=== PATIENT | male | born 1980 | race Caucasian/White ===

== ENCOUNTER 2018-06-29 18:20 | Inpatient (IN) | payer MEDICAID ==
[~2018-06-29] VITALS: Ht 170.2 cm; Wt 85.3 kg
[2018-06-29 18:48] VITALS: Ht 170.2 cm; Wt 85.3 kg
[2018-06-29 20:40] LABS: microscopic required? NO
[2018-06-29 20:51] LABS: UA SPECIFIC GRAVITY >=1.030 (1.005-1.035); urine erythrocyte NEGATIVE (NEGATIVE)
[2018-06-29 20:52] LABS: BASOPHIL % 0.7 % (0-2); PLATELET COUNT 234 x10^3mcL (130-400)
[2018-06-29 20:59] LABS: AMPHETAMINE QUAL UR NONE DETECTED (See below)
[2018-06-29 21:00] LABS: RED CELL DISTRIBUTION WIDTH 14.6 % (11.5-14.5)
[2018-06-29 21:41] LABS: CALCIUM 8.6 mg/dL (8.5-10.1); CARBON DIOXIDE 24.6 mmol/L (21-32); CHLORIDE SERUM 106 mmol/L (98-107); CREATININE SERUM 0.8 mg/dL (0.7-1.3); GFR1 > 60 mL/min; GLUCOSE SERUM 127 mg/dL (74-106); POTASSIUM SERUM 3.8 mmol/L (3.5-5.1); SODIUM SERUM 141 mmol/L (136-145)
[2018-06-29 21:51] LABS: ALBUMIN 3.8 g/dL (3.4-5.0); ALKALINE PHOSPHATASE 120 U/L (46-116); ALT/SGPT 20 U/L (16-63); AST/SGOT 20 U/L (15-37); BILIRUBIN TOTAL 0.3 mg/dL (0.20-1.00); FREE T4 0.92 ng/dL (0.76-1.46); TOTAL PROTEIN, SERUM 7.8 g/dL (6.4-8.2)
[2018-06-30 00:53] VITALS: BP 124/85
[2018-06-30 05:52] VITALS: BP 117/74
[2018-06-30 07:39] LABS: CALCIUM 8.4 mg/dL (8.5-10.1); CARBON DIOXIDE 27.5 mmol/L (21-32); CHLORIDE SERUM 108 mmol/L (98-107); CREATININE SERUM 0.8 mg/dL (0.7-1.3); GFR1 > 60 mL/min; GLUCOSE SERUM 104 mg/dL (74-106); POTASSIUM SERUM 4.2 mmol/L (3.5-5.1); SODIUM SERUM 143 mmol/L (136-145)
[2018-06-30 07:43] LABS: BASOPHIL % 0.6 % (0-2); PLATELET COUNT 206 x10^3mcL (130-400); RED CELL DISTRIBUTION WIDTH 14.5 % (11.5-14.5)
[2018-06-30 08:36] VITALS: BP 119/72
[2018-06-30 17:52] VITALS: BP 130/79
[2018-06-30 20:55] VITALS: BP 135/72
[2018-07-01 06:06] VITALS: BP 130/68
[2018-07-01 07:35] LABS: CALCIUM 8.4 mg/dL (8.5-10.1); CARBON DIOXIDE 27.8 mmol/L (21-32); CHLORIDE SERUM 106 mmol/L (98-107); CREATININE SERUM 0.7 mg/dL (0.7-1.3); GFR1 > 60 mL/min; GLUCOSE SERUM 98 mg/dL (74-106); POTASSIUM SERUM 3.6 mmol/L (3.5-5.1); SODIUM SERUM 141 mmol/L (136-145)
[2018-07-01 09:01] LABS: BASOPHIL % 0.7 % (0-2); PLATELET COUNT 226 x10^3mcL (130-400); RED CELL DISTRIBUTION WIDTH 14.2 % (11.5-14.5)
[2018-07-01 14:02] VITALS: BP 130/68
[2018-07-01 15:00] VITALS: BP 128/72
== END 2018-07-01 18:11 | disposition home or self-care (01) | DRG 48 ==
LOC: ED 18:20 → DU 22:34
PROVIDERS: Emergency Medicine; Family Medicine
DX: G90.8 Other disorders of autonomic nervous system (principal); F10.10 Alcohol abuse, uncomplicated; R00.1 Bradycardia, unspecified; F14.21 Cocaine dependence, in remission; F15.21 Other stimulant dependence, in remission; Z68.27 Body mass index [BMI] 27.0-27.9, adult; Z87.891 Personal history of nicotine dependence
CPT/HCPCS: 36600; 83880; 84439; G0480; J0461; J7030; Q0092

== ENCOUNTER 2019-09-13 20:44 | Emergency (ER) | payer MEDICAID ==
[~2019-09-13] VITALS: Ht 170.2 cm; Wt 90.3 kg
[2019-09-13 20:57] VITALS: Ht 170.2 cm; Wt 90.3 kg
[2019-09-13 21:15] LABS: BASOPHIL % 0.8 % (0-2); PLATELET COUNT 221 x10^3mcL (130-400); RED CELL DISTRIBUTION WIDTH 13.6 % (11.5-14.5)
[2019-09-13 21:31] LABS: CALCIUM 8.5 mg/dL (8.5-10.1); CARBON DIOXIDE 28.3 mmol/L (21-32); CHLORIDE SERUM 108 mmol/L (98-107); CREATININE SERUM 1.1 mg/dL (0.7-1.3); GFR1 > 60 mL/min; GLUCOSE SERUM 107 mg/dL (74-106); SODIUM SERUM 143 mmol/L (136-145)
[2019-09-13 21:36] LABS: ALBUMIN 3.5 g/dL (3.4-5.0); ALKALINE PHOSPHATASE 99 U/L (46-116); ALT/SGPT 28 U/L (16-63); AST/SGOT 16 U/L (15-37); BILIRUBIN TOTAL 0.3 mg/dL (0.20-1.00); TOTAL PROTEIN, SERUM 7.5 g/dL (6.4-8.2)
[2019-09-13 22:50] VITALS: BP 125/72
== END 2019-09-13 22:50 | disposition home or self-care (01) ==
LOC: ED 20:44
PROVIDERS: Emergency Medicine
DX: S93.402A Sprain of unspecified ligament of left ankle, initial encounter (principal); S30.0XXA Contusion of lower back and pelvis, initial encounter; S30.812A Abrasion of penis, initial encounter; W11.XXXA Fall on and from ladder, initial encounter; Y93.89 Activity, other specified; Y92.89 Other specified places as the place of occurrence of the external cause; Y99.8 Other external cause status
CPT/HCPCS: 90715; J1885; J2405; J3010; Q0092

== ENCOUNTER 2019-11-26 20:15 | Emergency (ER) | payer MEDICAID ==
[~2019-11-26] VITALS: Ht 172.7 cm; Wt 94.8 kg
[2019-11-26 20:56] VITALS: Ht 172.7 cm; Wt 94.8 kg
[2019-11-26 22:52] VITALS: BP 158/90
== END 2019-11-26 22:52 | disposition home or self-care (01) ==
LOC: ED 20:15
DX: H44.002 Unspecified purulent endophthalmitis, left eye (principal)
CPT/HCPCS: J2001

== ENCOUNTER 2019-12-03 11:46 | Emergency (ER) | payer MEDICAID ==
[~2019-12-03] VITALS: Ht 172.7 cm; Wt 91.6 kg
[2019-12-03 11:51] VITALS: BP 114/90; Ht 172.7 cm; Wt 91.6 kg
== END 2019-12-03 12:44 | disposition home or self-care (01) ==
LOC: ED 11:46
DX: J11.1 Influenza due to unidentified influenza virus with other respiratory manifestations (principal); R11.2 Nausea with vomiting, unspecified

== ENCOUNTER 2020-01-10 20:10 | Emergency (ER) | payer MEDICAID ==
[~2020-01-10] VITALS: Ht 172.7 cm; Wt 88.9 kg
[2020-01-10 20:20] VITALS: Ht 172.7 cm; Wt 88.9 kg
[2020-01-10 22:50] VITALS: BP 140/93
== END 2020-01-10 22:50 | disposition home or self-care (01) ==
LOC: ED 20:10
DX: G24.09 Other drug induced dystonia (principal); T50.905A Adverse effect of unspecified drugs, medicaments and biological substances, initial encounter; Y92.89 Other specified places as the place of occurrence of the external cause
CPT/HCPCS: Q0163